=== PATIENT | male | born 1985 | race African-American/Black ===

== ENCOUNTER 2018-08-06 11:04 | Emergency (ER) | payer BC, OTHER ==
--- NOTE | 2018-08-06 12:20 | ER Document Report ---
ED Medical Screen (RME) - General Chief Complaint: Laceration Stated Complaint: RIGHT HAND LACERATION Time Seen by Provider: 08/06/18 12:19 Primary Care Provider: ALAN RO [Primary Care Provider] - Follow up as needed Mode of Arrival: Ambulatory Information source: Patient TRAVEL OUTSIDE OF THE [place] IN LAST 30 DAYS: No - HPI Patient complains to provider of: R hand laceration Onset: Just prior to arrival - pt. cut R hand on glass just DOG WALKER. Tet -- UTD - Related Data Allergies/Adverse Reactions: No Known Allergies Allergy (Unverified 08/06/18 11:10) Past Medical History Skin Medical History: Comment Only Hx MRSA - MRSA 07/15 [facility] Physical Exam - Vital signs Vitals: Temp Pulse Resp BP Pulse Ox 98.3 F 98 14 139/73 H 95 08/06/18 11:11 08/06/18 11:11 08/06/18 11:11 08/06/18 11:11 08/06/18 11:11 Course - Vital Signs Vital signs: Temp Pulse Resp BP Pulse Ox 98.3 F 98 14 139/73 H 95 08/06/18 11:11 08/06/18 11:11 08/06/18 11:11 08/06/18 11:11 08/06/18 11:11 Doctor's Discharge - Discharge Referrals: ALAN RO [Primary Care Provider] - Follow up as needed
[2018-08-06] MEDS ORDERED: LIDOCAINE 1% INJ-PF (10 MG/ML) 30 ML SDV INJ ONE (14:07)
--- NOTE | 2018-08-06 14:34 | RADIOLOGY REPORT (SQ) ---
EXAM DESCRIPTION: HAND BILATERAL 3 VIEWS COMPLETED DATE/TIME: 08/06/2018 2:26 pm REASON FOR STUDY: lacerations/ eval glass? COMPARISON: None. EXAM PARAMETERS: NUMBER OF VIEWS: Three views. TECHNIQUE: AP, lateral and oblique radiographic images acquired of the right and left hand. LIMITATIONS: None. FINDINGS: MINERALIZATION: Normal. BONES: No acute fracture or dislocation. No worrisome bone lesions. Old healed 4th metacarpal boxer fracture right hand with mild palmar angulation of the right 4th metacarpal head JOINTS: No effusions. SOFT TISSUES: No soft tissue swelling. No foreign body. OTHER: No other significant finding. IMPRESSION: No acute fracture or malalignment. TECHNICAL DOCUMENTATION: JOB ID: [id number] [employer]- All Rights Reserved Reading location - IP/workstation name: [email or web address]
[2018-08-06] MEDS ORDERED: DIPH/PERTUSS(ACELL)/TETANUS VAC/PF 0.5 ML SYR (>=10YO) IM ONE (15:20)
--- NOTE | 2018-08-06 15:20 | ER Document Report ---
ED Wound - General Chief Complaint: Laceration Stated Complaint: RIGHT HAND LACERATION Time Seen by Provider: 08/06/18 12:19 Primary Care Provider: ALAN RO [NO LOCAL MD] - Follow up as needed Mode of Arrival: Ambulatory Notes: Patient is a 33-year-old male who presents the emergency department with a laceration to his right hand and left proximal thumb pain. He states that he was walking and was holding a jar and fell and the glass cut his hands. He states he is unsure as to whether he is up-to-date on his tetanus vaccine. Past medical history includes sickle cell anemia. TRAVEL OUTSIDE OF THE [place] IN LAST 30 DAYS: No - Related Data Allergies/Adverse Reactions: No Known Allergies Allergy (Unverified 08/06/18 11:10) Past Medical History - General Information source: Patient - Social History Smoking Status: Unknown if Ever Smoked Family History: Reviewed & Not Pertinent Patient has suicidal ideation: No Patient has homicidal ideation: No Renal/ Medical History: Denies: Hx Peritoneal Dialysis Skin Medical History: Comment Only Hx MRSA - MRSA 07/15 [facility] Review of Systems - Review of Systems Notes: REVIEW OF SYSTEMS: CONSTITUTIONAL : Denies recent illness. Denies recent unintentional weight loss. Denies fever, chills, or sweats. EENT: Denies eye, ear, throat, or mouth pain, discharge, or symptoms. Denies nasal or sinus congestion. CARDIOVASCULAR: Denies chest pain. RESPIRATORY: Denies shortness of breath, cough, congestion, difficulty breathing, or wheezing. GASTROINTESTINAL: Denies nausea, vomiting, and diarrhea. Denies abdominal pain. Denies constipation. GENITOURINARY: Denies difficulty urinating, burning, blood in urine, urgency or frequency. MUSCULOSKELETAL: Denies neck and back pain. Denies joint pain or swelling. SKIN: See HPI HEMATOLOGIC : Denies easy bruising or bleeding. LYMPHATIC: Denies swollen, painful, enlarged glands. NEUROLOGICAL: Denies no numbness or tingling denies weakness. Denies headache. Denies altered mental status. Denies alteration in speech. PSYCHIATRIC: Denies stress, anxiety, alteration in sleep patterns, or depression. All other systems reviewed and negative. Physical Exam - Vital signs Vitals: Temp Pulse Resp BP Pulse Ox 98.3 F 98 14 139/73 H 95 08/06/18 11:11 08/06/18 11:11 08/06/18 11:11 08/06/18 11:11 08/06/18 11:11 - Notes Notes: PHYSICAL EXAMINATION: GENERAL: Appears well, healthy, well-nourished, no acute distress. HEAD: Normocephalic, atraumatic. EYES: PERRL, conjunctiva normal, all extraocular movements intact, sclera nonicteric ENT: Moist mucous membranes. NECK: Supple, no noticeable swelling, redness, rash. Normal range of motion. LUNGS: Equal breath sounds bilaterally and clear to auscultation. No wheezes rales or rhonchi. CARDIOVASCULAR: S1-S2, regular rate, regular rhythm. Radial pulses 2+, normal. ABDOMEN: Normoactive bowel sounds. Soft, nontender, no guarding, no rebound tenderness, and no masses palpated. EXTREMITIES: Normal strength and range of motion, no pitting or edema. No cyanosis. NEUROLOGICAL: Moves all extremities upon command. Strength 5/5 in all extremities. PSYCH: Normal mood, normal affect. SKIN: Warm, dry. 2 lacerations noted to right third finger about 0.5 cm in length. 2-1/2 cm laceration noted to right wrist. 4 cm laceration noted to right palm. Normal skin turgor. Course - Re-evaluation Re-evalutation: 08/06/18 15:22 Patient's x-ray is negative for any acute fractures or glass noted. 9 sutures were placed to his right hand and multiple different spots including his wrist, palm, and third finger. He tolerated the procedure well. He will receive a tetanus vaccine since he is unsure as to when his last tetanus shot was. He will follow-up with primary care or the ED for suture removal in 7 to 10 days. Verbal discharge instructions were given to the patient. They verbalized understanding. They are stable for discharge. - Vital Signs Vital signs: Temp Pulse Resp BP Pulse Ox 98.3 F 82 18 126/76 H 94 08/06/18 11:11 08/06/18 15:51 08/06/18 15:51 08/06/18 15:51 08/06/18 15:51 Procedures - Laceration/Wound Repair Right third finger, right wrist, and right palm Wound length (cm): 9 - Multiple laceration areas Wound's Depth, Shape: Superficial, Linear, Flap Laceration pre-procedure: Sterile PPE donned, Shur-Clens applied Anesthetic type: 1% Lidocaine Volume Anesthetic (mLs): 10 Wound explored: Clean, No foreign body removed Irrigated w/ Saline (mLs): 20 Wound Debrided: Minimal Wound Repaired With: Sutures Suture Size/Type: 5:0, Nylon Number of Sutures: 9 Layer Closure?: No Post-procedure wound care: Sterile dressing applied Post-procedure NV exam normal: Yes Complications: No Discharge - Discharge Clinical Impression: Multiple lacerations Condition: Stable Disposition: HOME, SELF-CARE Instructions: Antibiotic Ointment Protection ([facility]), Laceration Care ([facility]), Prophylactic Antibiotic ([facility]), Soap Cleansing ([facility]), Tetanus Immunization Given ([facility]) Additional Instructions: Please return to your primary doctor, the ED, or an urgent care in 7-10 days for suture removal. Return immediately if you develop spreading redness around the wound, pus from the wound, worsening pain, or a fever of >100.4. Keep the area clean and dry. Wash gently with soap and water twice daily and cover with antibiotic ointment. You have been given antibiotics to prevent infection, take all antibiotics as prescribed. Prescriptions: Cephalexin Monohydrate [Keflex 500 mg Capsule] 500 mg PO Q6H 5 Days capsule Referrals: LOCALMD,NO [NO LOCAL MD] - Follow up as needed
[2018-08-06 15:59] VITALS: BP 126/76
== END 2018-08-06 15:52 | disposition home or self-care (01) ==
LOC: ER 11:04
DX: S61.411A Laceration without foreign body of right hand, initial encounter (principal); S61.212A Laceration without foreign body of right middle finger without damage to nail, initial encounter; S61.511A Laceration without foreign body of right wrist, initial encounter; M79.645 Pain in left finger(s); W19.XXXA Unspecified fall, initial encounter; W25.XXXA Contact with sharp glass, initial encounter; Z23 Encounter for immunization; Z86.14 Personal history of Methicillin resistant Staphylococcus aureus infection
CPT/HCPCS: 99283; 90471; 73130; 90715; 12004; J3490

== ENCOUNTER 2019-10-13 14:46 | Emergency (ER) | payer MEDICAID ==
--- NOTE | 2019-10-13 15:12 | ER Document Report ---
ED Medical Screen (RME) - General Chief Complaint: Sickle Cell Crisis Stated Complaint: SICKLE CELL PAIN Time Seen by Provider: 10/13/19 15:11 Mode of Arrival: Ambulatory Notes: This 34-year-old male presents to the emergency room today with sickle cell disease stating he has a priapism which has had before as a result of such. I greeted and performed a rapid initial assessment of this patient. Comprehensive ED assessment and evaluation of the patient, analysis of test results and completion of the medical decision making process will be conducted by additional ED providers. TRAVEL OUTSIDE OF THE [place] IN LAST 30 DAYS: No - Related Data Allergies/Adverse Reactions: No Known Allergies Allergy (Unverified 08/06/18 11:10) Past Medical History Renal/ Medical History: Denies: Hx Peritoneal Dialysis Skin Medical History: Comment Only Hx MRSA - MRSA 07/15 [facility] Physical Exam - Vital signs Vitals: Temp Pulse Resp BP Pulse Ox 98.7 F 86 14 133/72 H 95 10/13/19 14:52 10/13/19 14:52 10/13/19 14:52 10/13/19 14:52 10/13/19 14:52 Course - Vital Signs Vital signs: Temp Pulse Resp BP Pulse Ox 98.7 F 86 14 133/72 H 95 10/13/19 14:52 10/13/19 14:52 10/13/19 14:52 10/13/19 14:52 10/13/19 14:52
[2019-10-13 15:42] LABS: ABSOLUTE RETICS # 0.351 10^6/uL (0.028-0.122); RETICULOCYTE COUNT (AUTO) 11.08 % (0.66-2.85)
[2019-10-13 15:46] LABS: ABSOLUTE BASOPHILS # (AUTO) 0.1 10^3/uL (0.0-0.2); ABSOLUTE EOSINOPHILS # (AUTO) 0.3 10^3/uL (0.0-0.6); ABSOLUTE LYMPHOCYTES (AUTO) 3.1 10^3/uL (0.5-4.7); ABSOLUTE NEUT (AUTO) 7.9 10^3/uL (1.7-8.2); HEMATOCRIT 26.1 % (37.9-51.0); HEMOGLOBIN 9.6 g/dL (13.5-17.0); LYMPHOCYTES % (AUTO) 23.1 % (13-45); MEAN CORPUSCULAR HEMOGLOBIN 30.6 pg (27.0-33.4); MEAN CORPUSCULAR HGB CONC 36.8 g/dL (32.0-36.0); MEAN CORPUSCULAR VOLUME 83 fl (80-97); MONOCYTES % (AUTO) 15.1 % (3-13); PLATELET COUNT 297 10^3/uL (150-450); RED BLOOD COUNT 3.14 10^6/uL (4.35-5.55); RED CELL DISTRIBUTION WIDTH 26.2 % (11.5-14.0); SEGMENTED NEUTROPHILS % (AUTO) 58.8 % (42-78); TOTAL CELLS COUNTED % (AUTO) 100 %; WHITE BLOOD COUNT 13.5 10^3/uL (4.0-10.5)
[2019-10-13 15:57] LABS: ALBUMIN 4.2 g/dL (3.5-5.0); ALKALINE PHOSPHATASE 221 U/L (38-126); ANION GAP 7 (5-19); ASPARTATE AMINO TRANSFERASE 73 U/L (17-59); BILIRUBIN,DIRECT 1.4 mg/dL (0.0-0.4); BLOOD UREA NITROGEN 9 mg/dL (7-20); CALCIUM 9.5 mg/dL (8.4-10.2); CARBON DIOXIDE 26 mmol/L (22-30); CHLORIDE 105 mmol/L (98-107); GLUCOSE 135 mg/dL (75-110); POTASSIUM 4.2 mmol/L (3.6-5.0); TOTAL PROTEIN 8.9 g/dL (6.3-8.2)
[2019-10-13 16:06] LABS: ANISOCYTOSIS 3+; POLYCHROMASIA SLIGHT
[2019-10-13 16:07] LABS: PAPPENHEIMER BODIES PRESENT; PLATELET COMMENT ADEQUATE; SICKLE RED CELLS 1+; TARGET CELLS 1+
--- NOTE | 2019-10-13 18:14 | ER Document Report ---
ED General - General Chief Complaint: Sickle Cell Crisis Stated Complaint: SICKLE CELL PAIN Time Seen by Provider: 10/13/19 15:11 Mode of Arrival: Ambulatory TRAVEL OUTSIDE OF THE [place] IN LAST 30 DAYS: No - HPI Notes: Chief complaint: Priapism History of present illness: 34-year-old male with longstanding history of sickle cell disease followed by Hematology Oncology Clinic at [facility] presents with priapism present since 7 AM yesterday morning. Patient says he has had several episodes of this in the past the last of which was approximately 3 years ago. He is also having some mild diffuse joint pain. He denies fever, chills, cough, dyspnea or vomiting. He is taken some oxycodone intermittently for pain and last took this at 9 AM today. - Related Data Allergies/Adverse Reactions: No Known Allergies Allergy (Unverified 08/06/18 11:10) Past Medical History - General Information source: Patient, [facility] Records - Social History Smoking Status: Never Smoker Frequency of alcohol use: Occasional Drug Abuse: Marijuana Family History: Reviewed & Not Pertinent Patient has homicidal ideation: No Renal/ Medical History: Denies: Hx Peritoneal Dialysis Skin Medical History: Comment Only Hx MRSA - MRSA 07/15 [facility] Review of Systems - Review of Systems Notes: Constitutional: Negative for fever. HENT: Negative for sore throat. Eyes: Negative for visual changes. Cardiovascular: Negative for chest pain. Respiratory: Negative for shortness of breath. Gastrointestinal: Negative for abdominal pain, vomiting or diarrhea. Genitourinary: As per HPI. Musculoskeletal: As per HPI. Skin: Negative for rash. Neurological: Negative for headaches, weakness or numbness. 10 point ROS negative except as marked above and in HPI. Physical Exam - Vital signs Vitals: Temp Pulse Resp BP Pulse Ox 98.7 F 86 14 133/72 H 95 10/13/19 14:52 10/13/19 14:52 10/13/19 14:52 10/13/19 14:52 10/13/19 14:52 - Notes Notes: GENERAL: Well-developed well-nourished appearing in no acute distress. SKIN: Good turgor no rashes. HEAD: Normocephalic atraumatic. EYES: PERRLA. EOMI. Conjunctivae and sclerae clear. EARS: CANALS AND TMS CLEAR. NOSE: CLEAR. MOUTH: Moist mucosa. Good dentition. No stridor or edema. No drooling. NECK: Supple. No masses or thyromegaly. No adenopathy. Carotids 2+ without bruits. No JVD. BACK: Symmetrical without tenderness. CHEST: Respirations unlabored. Breath sounds clear and symmetrical. HEART: Regular rhythm. No murmur gallop or rub. ABDOMEN: Soft nontender without masses, organomegaly or rebound. Bowel sounds normally active. No bruits. GENITALIA: Uncircumcised male with mild priapism and minimal tenderness at the base of the penis. EXTREMITIES: No edema. No calf tenderness. Cap refill less than 1.5 seconds. Dorsalis pedis and posterior tibial pulses 3+ and symmetrical. NEUROLOGICAL: GCS 15. Alert and oriented x3. Normal gait. Fluent speech. Cranial nerves II through XII intact. Sensorimotor and cerebellar normal. Normal tone. PSYCHIATRIC: Appropriate affect. Course - Re-evaluation Re-evalutation: 10/13/19 18:14 We do not have urology available locally. I have contacted [facility] to try to coordinate urgent transfer. 10/13/19 18:20 Case d/w Dr. Aguilera with Heme/Onc @ [facility]. He feels ED to ED transfer appropriate. Accpted by Dr. Barboza. - Vital Signs Vital signs: Temp Pulse Resp BP Pulse Ox 98.7 F 86 14 133/72 H 95 10/13/19 15:09 10/13/19 14:52 10/13/19 14:52 10/13/19 14:52 10/13/19 14:52 - Laboratory Result Diagrams: 10/13/19 15:30 10/13/19 15:30 Laboratory results interpreted by me: 10/13/19 10/13/19 10/13/19 15:30 15:30 15:30 WBC 13.5 H RBC 3.14 L Hgb 9.6 L Hct 26.1 L MCHC 36.8 H RDW 26.2 H [place] % (Auto) 15.1 H Reticulocyte # 0.351 H Absolute Monos (auto) 2.0 H Retic Count (auto) 11.08 H Glucose 135 H Total Bilirubin 7.0 H Direct Bilirubin 1.4 H AST 73 H Alkaline Phosphatase 221 H Total Protein 8.9 H Discharge - Discharge Clinical Impression: Priapism due to sickle cell disease Condition: Fair Disposition: [facility]
[2019-10-13 19:19] VITALS: BP 129/76
[2019-10-13] MEDS ORDERED: ONDANSETRON HCL INJ/PF 4 MG/2 ML SDV IV ONE (19:40)
[2019-10-13] MEDS ORDERED: MORPHINE SULFATE 10 MG/ML INJ IV ONE (19:41)
== END 2019-10-13 20:00 | disposition short-term general hospital (02) ==
LOC: ER 14:46
DX: N48.30 Priapism, unspecified (principal); D57.1 Sickle-cell disease without crisis; Z86.14 Personal history of Methicillin resistant Staphylococcus aureus infection
CPT/HCPCS: 36415; 80053; 85025; 85045; 99284